=== PATIENT | female | born 1945 | race Caucasian/White ===

== ENCOUNTER → 2017-01-01 | Outpatient (CLI) | payer MEDICARE, BC | END | disposition home or self-care (01) | LOC: RAD.S 10:28 | DX: Z12.31 Encounter for screening mammogram for malignant neoplasm of breast (principal); R92.0 Mammographic microcalcification found on diagnostic imaging of breast; N64.89 Other specified disorders of breast ==

== ENCOUNTER → 2017-01-08 | Outpatient (CLI) | payer MEDICARE, BC | END | disposition home or self-care (01) | LOC: RAD.S 01-04 09:43 | DX: R92.8 Other abnormal and inconclusive findings on diagnostic imaging of breast (principal); N63 Unspecified lump in breast ==

== ENCOUNTER 2017-02-03 09:13 | Day surgery (SDC) | payer MEDICARE, BC ==
[~2017-02-03] VITALS: Ht 165.1 cm; Wt 61.8 kg
--- NOTE | 2017-03-09 07:06 | OR ---
ADMIT: 02/03/2017 RM/LOC: [facility] MR#: [id number] [facility] [address] [place] [id number] MARYAN JOSHI [address] [place] [address] Operative/Delivery Room Report SEX: F AGE: 71 : 1945 SURGERY DATE: 02/03/2017 SURGEON: Ac Lyles MD PREOPERATIVE DIAGNOSIS: Right breast cancer. POSTOPERATIVE DIAGNOSIS: Right breast cancer. PROCEDURE PERFORMED: 1. Right breast needle localization lumpectomy, upper outer quadrant. 2. Congers lymph node biopsy from the right side. 3. Injection of Lymphazurin for sentinel lymph node identification. ANESTHESIA: General endotracheal with the addition of Marcaine in the wounds postprocedure. ESTIMATED FLUID LOSS: Less than 10 mL. DESCRIPTION OF PROCEDURE: After appropriate informed consent was obtained, the patient was brought to the operating room. Needle localization then performed by Radiology. Her right breast and axilla were prepped and draped in a sterile fashion. It should be noted prior to this, I did inject 3 mL Lymphazurin in the nipple areolar region, subareolar position. Axillary sentinel lymph node dissection was done first. Using the gamma probe, I was able to identify the area of greatest intensity in the right axilla. Incision was created and carried deep with cautery. Two hot blue lymph nodes were identified and removed. The background count was less than 10% of the initial lymph node count, so we did not go searching for any additional lymph nodes. The wound was inspected for hemostasis. Once I was satisfied hemostasis, I then proceeded with lumpectomy. I then made a small incision around the existing wire, carried this deep with cautery, and excised a generous portion of breast tissue around the wire. The specimen was handed off, sent to Radiology, which confirmed that we had the area of interest. The wound was dried up with cautery. Injected with Marcaine as was the axillary incision. The wound was then closed with 3-0 Vicryl in the dermal layer and a running 4-0 Monocryl in the subcuticular layer. The axillary incision was closed in similar fashion. Sterile dressing was then applied. The patient tolerated the procedure well and was taken to the recovery room in stable condition. Ac Lyles MD/ vincent JOB #: [id number] CC: Ac Lyles MD, Attending Physician Vineet Malave MD, Family Physician
== END 2017-02-03 15:10 | disposition home or self-care (01) ==
LOC: SSS 09:13 → RAD.S 10:30 → SSS 10:30 → RAD.S 11:30 → SSS 15:10
DX: C50.511 Malignant neoplasm of lower-outer quadrant of right female breast (principal); I10 Essential (primary) hypertension; E78.5 Hyperlipidemia, unspecified; E03.9 Hypothyroidism, unspecified; F17.200 Nicotine dependence, unspecified, uncomplicated; Z90.710 Acquired absence of both cervix and uterus; Z90.49 Acquired absence of other specified parts of digestive tract; Z98.49 Cataract extraction status, unspecified eye; Z17.0 Estrogen receptor positive status [ER+]; Z98.890 Other specified postprocedural states